=== PATIENT | female | born 1935 | race Asian ===

== ENCOUNTER → 2016-06-07 | Outpatient (CLI) | payer OTHER | END | disposition home or self-care (01) | LOC: RADPV 12:24 | PROVIDERS: ATTEND Internal Medicine | DX: I51.7 Cardiomegaly (principal); I70.0 Atherosclerosis of aorta; Z95.2 Presence of prosthetic heart valve; Z95.0 Presence of cardiac pacemaker | CPT/HCPCS: 71020 ==

== ENCOUNTER → 2016-08-17 | Outpatient (CLI) | payer OTHER | END | disposition home or self-care (01) | LOC: RADMN 10:04 | PROVIDERS: ATTEND Internal Medicine | DX: I86.8 Varicose veins of other specified sites (principal); I25.10 Atherosclerotic heart disease of native coronary artery without angina pectoris; I71.2 Thoracic aortic aneurysm, without rupture; I51.7 Cardiomegaly; Z95.0 Presence of cardiac pacemaker; Z95.2 Presence of prosthetic heart valve | CPT/HCPCS: 71250 ==

== ENCOUNTER → 2016-12-23 | Outpatient (CLI) | payer OTHER | END | disposition home or self-care (01) | LOC: RADPV 08:52 | PROVIDERS: ATTEND Internal Medicine | DX: Z13.820 Encounter for screening for osteoporosis (principal); M81.0 Age-related osteoporosis without current pathological fracture | CPT/HCPCS: 77080 ==